=== PATIENT | male | born 1985 | race Caucasian/White ===

== ENCOUNTER 2017-09-14 22:21 | Emergency (ER) | payer SELFPAY ==
[~2017-09-14] VITALS: Ht 160 cm; Wt 80.0 kg
[~2017-09-14 22:21] MED LIST: TRAM50TA PO
[2017-09-14 22:37] VITALS: BP 204/101; PULSE 54; RESP 18; TEMP 98.1; O2SAT 99
[2017-09-14 22:44] VITALS: BP 204/101; PULSE 54; RESP 18; TEMP 98.1; O2SAT 99
== END 2017-09-15 00:19 | disposition left against medical advice (07) ==
LOC: PHED 22:21
DX: K08.89 Other specified disorders of teeth and supporting structures (principal); F17.200 Nicotine dependence, unspecified, uncomplicated
CPT/HCPCS: 99281